=== PATIENT | female | born 1990 | race Caucasian/White ===

== ENCOUNTER → 2016-10-01 | Outpatient (CLI) | payer OTHER ==
--- NOTE | 2016-10-01 13:32 | US ---
Transabdominal and Endovaginal Pelvic Ultrasound Clinical History: 26-year-old female who had an intrauterine device placed 6-8 months ago, and has dy spareunia. ICD 10 Diagnostic Code: Z30.431. TECHNIQUE: A curvilinear 5 MHz transducer was initially used to sonographically evaluate the pelvis, using a full urinary bladder as a window. To better assess the uterine architecture and the adnexal s tructures, endovaginal pelvic sonography was also performed. Color and spectral Doppler were used. Comparison: None. Findings: Transabdominal Pelvic Sonography: The uterus is normal in size, shape, and position, measuring 6.9 x 3.2 x 4.8 cm. The echogenic intrauterine device is noted. The visualized aspects of the urinary bladd er are normal. The right and left ovaries are normal. There is no free fluid. Endovaginal Pelvic Sonography: The endometrium is homogeneous, and measures 4.1 mm. There is appropri ate positioning of the T-shaped intrauterine device which terminates at the level of the fundal endom etrium, and the sidearms are appropriately-deployed. There is no focal myometrial abnormality. The ri ght ovary measures 3.4 x 1.6 x 3.2 cm. The left ovary measures 2.9 x 1.9 x 2.6 cm. There are no cyst ic or solid adnexal masses identified. Normal arterial blood flow is documented to both ovaries by Do ppler ultrasound. The resistive index associated with the left ovary 0.64, and with the right ovary 0 .71. There is no free fluid in the pelvic cul-de-sac. Impression: 1. Appropriately-deployed intrauterine device. 2. Normal appearance of the ovaries.
== END ==
LOC: CIMAGING 09:10
PROVIDERS: ATTEND Nurse Practitioner Women's Health
DX: Z30.431 Encounter for routine checking of intrauterine contraceptive device (principal)
CPT/HCPCS: 76856-PO